=== PATIENT | female | born 1990 | race Hispanic/Latino ===

== ENCOUNTER 2016-06-30 12:06 | Outpatient (CLI) | payer MEDICAID ==
[~2016-06-30] VITALS: Ht 165.1 cm; Wt 125.2 kg
[~2016-06-30 12:06] MED LIST: ACHD5005 PO; CEPH-507 PO; CITA20TA12 PO; DCS100C PO; FERR-74 PO; HYDR-3812 PO; IBP600T1 PO; IBUP-1773 PO; IRON; METFORMIN; MTF500T PO; NAPROSYN; OXYC-12 PO; PREN1TAB39 PO; PREN1TAB71 PO
[2016-06-30 12:27] VITALS: BP 125/68
[2016-06-30 13:03] LABS: BASOPHILS % (AUTO) 0 % (0-10); EOSINOPHILS # (AUTO) 0.3 10^3/uL (0.0-0.3); EOSINOPHILS % (AUTO) 5 % (0-10); LYMPHOCYTES # (AUTO) 1.9 X 10^3 (1.0-4.0); LYMPHOCYTES % (AUTO) 34 % (12-44); MEAN CORPUSCULAR HEMOGLOBIN 25 PG (25-34); MEAN CORPUSCULAR HGB CONC 33 G/DL (32-36); MEAN CORPUSCULAR VOLUME 76 FL (80-99); MEAN PLATELET VOLUME 9.7 FL (7.4-10.4); MONOCYTES # (AUTO) 0.5 X 10^3 (0.0-1.0); MONOCYTES % (AUTO) 8 % (0-12); NEUTROPHILS # (AUTO) 2.9 X 10^3 (1.8-7.8); NEUTROPHILS % (AUTO) 53 % (42-75); PLATELET COUNT 316 10^3/uL (130-400); RED BLOOD COUNT 4.89 10^6/uL (4.35-5.85); RED CELL DISTRIBUTION WIDTH 15.2 % (10.0-14.5); WHITE BLOOD COUNT 5.6 10^3/uL (4.3-11.0)
== END 2016-06-30 13:27 | disposition home or self-care (01) ==
LOC: PREOP 12:06
PROVIDERS: ATTEND Obstetrics & Gynecology
DX: Z01.812 Encounter for preprocedural laboratory examination (principal); Z11.2 Encounter for screening for other bacterial diseases; N80.9 Endometriosis, unspecified
CPT/HCPCS: 36415; 85025; 86850; 86900; 86901; 87081

== ENCOUNTER 2018-11-14 05:33 | Outpatient (CLI) | payer BC, MEDICAID ==
[~2018-11-14] VITALS: Ht 165.1 cm; Wt 145.4 kg
[~2018-11-14 05:33] MED LIST changes: -FERR-74 PO; +FERR325T18 PO; -HYDR-3812 PO
[2018-11-14 12:43] VITALS: BP 119/57
[2018-11-14 13:15] LABS: BASOPHILS % (AUTO) 0 % (0-10); EOSINOPHILS # (AUTO) 0.2 10^3/uL (0.0-0.3); EOSINOPHILS % (AUTO) 4 % (0-10); HEMATOCRIT 35 % (35-52); HEMOGLOBIN 11.5 G/DL (11.5-16.0); LYMPHOCYTES # (AUTO) 2.1 X 10^3 (1.0-4.0); LYMPHOCYTES % (AUTO) 43 % (12-44); MEAN CORPUSCULAR HEMOGLOBIN 25 PG (25-34); MEAN CORPUSCULAR HGB CONC 33 G/DL (32-36); MEAN CORPUSCULAR VOLUME 78 FL (80-99); MEAN PLATELET VOLUME 9.7 FL (7.4-10.4); MONOCYTES # (AUTO) 0.4 X 10^3 (0.0-1.0); MONOCYTES % (AUTO) 8 % (0-12); NEUTROPHILS # (AUTO) 2.1 X 10^3 (1.8-7.8); NEUTROPHILS % (AUTO) 44 % (42-75); PLATELET COUNT 320 10^3/uL (130-400); RED CELL DISTRIBUTION WIDTH 14.9 % (10.0-14.5); WHITE BLOOD COUNT 4.8 10^3/uL (4.3-11.0)
[2018-11-14 13:21] LABS: BILIRUBIN,URINE NEGATIVE (NEGATIVE); CLARITY,URINE CLEAR; COLOR,URINE YELLOW; GLUCOSE, URINE (UA) NEGATIVE (NEGATIVE); KETONES,URINE NEGATIVE (NEGATIVE); LEUKOCYTE ESTERASE ,URINE 2+ (NEGATIVE); NITRITE,URINE NEGATIVE (NEGATIVE); PH,URINE 5 (5-9); PROTEIN,URINE NEGATIVE (NEGATIVE); UROBILINOGEN,URINE NORMAL (NORMAL)
[2018-11-14 13:29] LABS: BACTERIA,URINE FEW /HPF; RBC,URINE RARE /HPF
== END 2018-11-14 15:00 | disposition home or self-care (01) ==
LOC: PREOP 05:33
PROVIDERS: ATTEND Obstetrics & Gynecology
DX: Z01.818 Encounter for other preprocedural examination (principal); N80.9 Endometriosis, unspecified
CPT/HCPCS: 36415; 81000; 85025; 86850; 86900; 86901; 87081; 87088

== ENCOUNTER 2018-11-20 06:19 | Day surgery (SDC) | payer BC, MEDICAID ==
[~2018-11-20] VITALS: Ht 165.1 cm; Wt 141.8 kg
[2018-11-20] VITALS (12 sets, daily range): BP systolic 115–138; BP diastolic 59–95
[2018-11-20] MEDS ORDERED: metroNIDAZOLE 500MG/100ML IVPB 100 ML IV ONE (06:45)
[2018-11-20] MEDS ORDERED: ceFAZolin INJECTION 1,000 MG in WATER (STERILE) FOR INJECTION 10 ML IV ONE (06:45)
[2018-11-20] MEDS ORDERED: ROCURONIUM 10 MG/ML 5 ML SYRINGE IV ONE ×3 (06:56→10:25)
[2018-11-20] MEDS ORDERED: SEVOFLURANE (ULTANE) 15 ML INHAL SOLN ONE ×15 (06:56→11:42)
[2018-11-20] MEDS ORDERED: DEXAMETHASONE 10 MG/ML (DECADRON) 1 ML VIAL ONE (06:56)
[2018-11-20] MEDS ORDERED: GLYCOPYRROLATE 0.2 MG/ML (ROBINUL) 2 ML VIAL ONE (06:56)
[2018-11-20] MEDS ORDERED: ONDANSETRON 4 MG/2 ML (SDV) Z0FRAN ONE (06:56)
[2018-11-20] MEDS ORDERED: fentaNYL INJECTION 100 MCG/2 ML AMP ONE (06:56)
[2018-11-20] MEDS ORDERED: MIDAZOLAM 2 MG/2 ML (VERSED) VIAL ONE (06:56)
[2018-11-20] MEDS ORDERED: NEOSTIGMINE 3 MG/3 ML VIAL ONE (06:56)
[2018-11-20] MEDS: LACTATED RINGERS 1,000 ML IV PRN ×2 (07:05→09:10)
[2018-11-20] MEDS ORDERED: BUP/EPI 0.25% 1:200,000 (MARCAINE) 10 ML VIAL IJ ONE (07:25)
--- NOTE | 2018-11-20 07:41 | Progress Note-Pre Operative ---
Pre-Operative Progress Note H&P Reviewed The H&P was reviewed, patient examined and no changes noted. Date Seen by Provider: Nov 20, 2018 Time Seen by Provider: 07:30 Date H&P Reviewed: Nov 20, 2018 Time H&P Reviewed: 07:00 Pre-Operative Diagnosis: endometriosis, endometrioma JASON KEYS DO Nov 20, 2018 07:41
[2018-11-20] MEDS ORDERED: KETOROLAC 30 MG/ML VIAL IV SCH (08:15)
[2018-11-20] MEDS ORDERED: CHLORASEPTIC LOZENGE MM PRN (08:15)
[2018-11-20] MEDS ORDERED: MILK OF MAGNESIA 400 MG/5 ML 30 ML UDC PO PRN (08:15)
[2018-11-20] MEDS ORDERED: ONDANSETRON 4 MG (ZOFRAN) ORAL DISSOLVE TAB PO PRN (08:15)
[2018-11-20] MEDS ORDERED: INDIGO CARMINE 8 MG/ML 5 ML AMP ONE (10:59)
[2018-11-20] MEDS ORDERED: HYDROmorphone 2 MG/ML VIAL (DILAUDID) ONE (11:01)
[2018-11-20] MEDS ORDERED: FUROSEMIDE 40 MG/4 ML INJ (LASIX) ONE (11:11)
--- NOTE | 2018-11-20 11:57 | Operative Report ---
Operative Report Date of Procedure/Surgery Nov 20, 2018 Surgeon (s) JASON KEYS DO Post-Operative Diagnosis ADENOMYOSIS CHRONIC PAIN ENDOMETRIOSIS TUBOOVARIAN ADHESIONS Procedure Performed rAth, BILATERAL SALPINGECTOMY > 250 GRAMS MORCELLATION (TRIVALVED) TRIGGER POINT INJECTION Description of Procedure Anesthesia Type: General Estimated blood loss (mL): 250 Specimen(s) collected/removed UTERUS, BILATERAL TUBES Findings of the Procedure > 250 GRAMS Allergies and Home Medications Allergies Coded Allergies: No Known Drug Allergies (Unverified , 11/14/18) Home Medications No Active Prescriptions or Reported Meds Patient Home Medication List Home Medication List Reviewed: Yes JASON KEYS DO Nov 20, 2018 11:57
[2018-11-20] MEDS: LACTATED RINGERS 1,000 ML IV SCH ×2 (12:03→16:30)
[2018-11-20] MEDS ORDERED: ONDANSETRON 4 MG/2 ML (SDV) Z0FRAN IVP PRN (12:15)
[2018-11-20] MEDS ORDERED: morphine INJ 10 MG/ML 1ML (SYR OR VIAL) IVP ONE (12:15)
[2018-11-20] MEDS ORDERED: HYDROmorphone 2 MG/ML VIAL (DILAUDID) IV ONE (12:15)
[2018-11-20] MEDS ORDERED: KETOROLAC 30 MG/ML VIAL ONE (12:22)
--- NOTE | 2018-11-20 13:00 | NUR ---
TARIQ KRAFT admitted to room 3306-1, with an admitting diagnosis of postop RAH with Bilateral salpingectomy, on 11-20-18 from OR via cart, accompanied by staff.TARIQ KRAFT introduced to surroundings, call light, bed controls, phone, TV, temperature control, lights, meal times, smoking policy, visitor policy, side rail policy, bathrooms and showers. Patient Rights given to patient in the handbook. TARIQ KRAFT verbalizes understanding that [facility] is not responsible for the loss or damage to any personal effects or valuables that are kept in the patients posession during their hospitalization. The following Patient Care Plans were discussed with the patient: Discharge Planning, pain management, postop care. TARIQ KRAFT verbalizes understanding of Interdisciplinary Patient Education. Patient and/or family were informed about the Rapid Response Team and its purpose.
[2018-11-20] MEDS: morphine INJ 4 MG/ML 1 ML (VIAL/SYRINGE) IVP PRN ×2 (15:15→22:45)
[2018-11-20] MEDS: KETOROLAC 30 MG/ML VIAL IV SCH (19:31)
--- NOTE | 2018-11-20 19:31 | NUR ---
PRN and routine pain medications provided at this time. Family, and spool tender present at bedside. Will return to reevaluate pain and for assessment.
[2018-11-20] MEDS: ACETAMINOPHEN 500 MG TAB (TYLENOL) PO SCH (19:32)
[2018-11-21] MEDS: LACTATED RINGERS 1,000 ML IV SCH (00:35)
[2018-11-21 02:10] VITALS: BP 110/58
[2018-11-21] MEDS: KETOROLAC 30 MG/ML VIAL IV SCH ×2 (02:20→09:14)
[2018-11-21] MEDS: ACETAMINOPHEN 500 MG TAB (TYLENOL) PO SCH ×2 (04:30→13:24)
[2018-11-21 06:40] VITALS: BP 119/58
[2018-11-21] MEDS ORDERED: IBUP-844 PO (08:27)
[2018-11-21] MEDS ORDERED: DOCU-143 PO (08:27)
[2018-11-21] MEDS ORDERED: MAGN400O7 PO (08:27)
[2018-11-21] MEDS ORDERED: ACET-77 PO (08:27)
[2018-11-21] MEDS ORDERED: OXC5T PO (08:27)
--- NOTE | 2018-11-21 08:30 | Discharge Inst-Women's Service ---
Discharge Inst-Women's Serv Depart Medication/Instructions New, Converted or Re-Newed RX: Other (transmmitted and printed) Final Diagnosis endometriosis menorrhagia uterine fibroids adenomyosis Problems Reviewed?: Yes Consults/Follow Up Additional Follow Up: Yes (1 -2 weeks for incision check and 10-12 weeks for pelvic exam.) Activity Activity: Activity as Tolerated Driving Instructions: No Driving for 1 Week NO SMOKING: NO SMOKING Nothing Inside Vagina: No Douching, No [place], No Tampons Other Activity NOTHING IN THE VAGINA UNTIL CLEARED (minimum 10 weeks) Diet Discharge Diet: No Restrictions Symptoms to Report to DrBjorn: Swelling Increased, Bleeding Excessive, Pain Increased, Constipation(Persistant), Fever Over 101 Degrees F, Vaginal Bleeding Increase, Cramps in Feet or Legs, Vaginal Discharge Foul For Any Problems or Questions: Contact Your Physician Skin/Wound Care Infection Signs and Symptoms: Increased Redness, Foul Odor of Wound, Increased Drainage, Skin Itchy or Has a Rash, Increased Swelling, Temperature Above 101 F Operative Area Clean and Dry: Keep Incision Clean/Dry Stitches/Joshua/Dermabond: Dermabond Bathing Instructions: JASON Workman DO Nov 21, 2018 08:30
[2018-11-21] MEDS ORDERED: KETOROLAC 30 MG/ML VIAL ONE (08:31)
--- NOTE | 2018-11-21 08:40 | NUR ---
To room for medications, vs, and assessment. Pt sound asleep. No s/s of distress noted, family member sleeping on couch at bedside. Will not disturb at this time. Will return.
--- NOTE | 2018-11-21 08:56 | NUR ---
DR KEYS CALLED TO UNIT FOR UPDATE. UPDATE GIVEN, NO NEW ORDERS REC'D.
[2018-11-21 09:11] VITALS: BP 109/54
--- NOTE | 2018-11-21 10:07 | NUR ---
FOLLOW UP APPTS MADE FOR PT.
--- NOTE | 2018-11-21 11:30 | NUR ---
PT ASSISTED TO BATHROOM VIA AMBULATION ACCOMPANIED BY OB STAFF WITHOUT INCIDENT. PT VOIDS 200ML CLEAR, YELLOW URINE NOTED. PT ASSISTED BACK TO BED. IV TO SALINE LOCK.
--- NOTE | 2018-11-21 11:40 | NUR ---
DR KEYS NOTIFIED PT VOIDED AND IS READY FOR DISMISSAL BUT HAS QUESTIONS REGARDING PROCEDURE. WILL COME TO ANSWER QUESTIONS AFTER MORNING CLINIC IS FINISHED.
[2018-11-21] MEDS ORDERED: IBUPROFEN 600 MG (MOTRIN) TAB PO SCH (12:00)
--- NOTE | 2018-11-21 12:45 | NUR ---
DR KEYS HERE, QUESTIONS ANSWERED TO PT SATISFACTION. PT READY FOR DISMISSAL.
--- NOTE | 2018-11-21 13:30 | NUR ---
DISCHARGE INSTRUCTIONS EXPLAINED TO PT WITH COPY PROVIDED TO PT ALONG WITH NARCOTIC SCRIPTS, PT NOTIFIED OF OTHER PRESCRIPTIONS ELECTRONICALLY SENT TO PHARMACY. PT VERBALIZES UNDERSTANDING OF INSTRUCTIONS, DENIES QUESTIONS OR CONCERNS AT THIS TIME, AND SIGNS TO VERIFY. IV REMOVED, TIP INTACT. PT AMBULATES OFF UNIT WITH ALL PERSONAL BELONGINGS, ACCOMPANIED BY S.O. AND STAFF MEMBER TO PRIVATE VEHICLE. NO S/S OF DISTRESS NOTED.
--- NOTE | 2018-11-21 14:29 | Anesthesia-General Post-Op ---
General Patient Condition Mental Status/LOC: Same as Preop Cardiovascular: Satisfactory Nausea/Vomiting: Absent Respiratory: Satisfactory Pain: Controlled Complications: Absent Post Op Complications Complications None Follow Up Care/Instructions Patient Instructions None needed. Anesthesia/Patient Condition Patient Condition Patient is doing well, no complaints, stable vital signs, no apparent adverse anesthesia problems. No complications reported per nursing. ACOSTA HENSON CRNA Nov 21, 2018 14:29
== END 2018-11-21 13:35 | disposition home or self-care (01) ==
LOC: SDC 06:19 → WS 13:00 → SDC 11-21 13:35
PROVIDERS: ATTEND Obstetrics & Gynecology
DX: N80.0 Endometriosis of uterus (principal); D25.1 Intramural leiomyoma of uterus; N83.8 Other noninflammatory disorders of ovary, fallopian tube and broad ligament; G89.29 Other chronic pain; R10.2 Pelvic and perineal pain; N73.6 Female pelvic peritoneal adhesions (postinfective); E66.9 Obesity, unspecified; Z68.43 Body mass index [BMI] 50.0-59.9, adult; F32.9 Major depressive disorder, single episode, unspecified; Z82.49 Family history of ischemic heart disease and other diseases of the circulatory system; Z83.3 Family history of diabetes mellitus
CPT/HCPCS: 84703; 86850; 86900; 86901; 88307; 94664

== ENCOUNTER 2018-12-20 21:04 | Emergency (ER) | payer BC ==
[~2018-12-20] VITALS: Ht 167.7 cm; Wt 143.8 kg
[~2018-12-20 21:04] MED LIST changes: +ACET-77 PO; +DOCU-143 PO; +IBUP-844 PO; +MAGN400O7 PO; +OXC5T PO
[2018-12-20] MEDS ORDERED: NS IV 1000 ML 1,000 ML ONE (21:30)
[2018-12-20] MEDS ORDERED: NS IV 1000 ML 1,000 ML IV SCH (21:36)
[2018-12-20 21:43] LABS: BASOPHILS % (AUTO) 0 % (0-10); EOSINOPHILS # (AUTO) 0.5 10^3/uL (0.0-0.3); EOSINOPHILS % (AUTO) 7 % (0-10); HEMATOCRIT 34 % (35-52); HEMOGLOBIN 10.8 G/DL (11.5-16.0); LYMPHOCYTES # (AUTO) 2.9 X 10^3 (1.0-4.0); LYMPHOCYTES % (AUTO) 41 % (12-44); MEAN CORPUSCULAR HEMOGLOBIN 25 PG (25-34); MEAN CORPUSCULAR HGB CONC 32 G/DL (32-36); MEAN CORPUSCULAR VOLUME 77 FL (80-99); MEAN PLATELET VOLUME 9.6 FL (7.4-10.4); MONOCYTES # (AUTO) 0.7 X 10^3 (0.0-1.0); MONOCYTES % (AUTO) 10 % (0-12); NEUTROPHILS % (AUTO) 43 % (42-75); PLATELET COUNT 320 10^3/uL (130-400); RED CELL DISTRIBUTION WIDTH 14.6 % (10.0-14.5)
[2018-12-20 21:50] LABS: INR 1.1 (0.8-1.4); PROTHROMBIN TIME PATIENT 14.2 SEC (12.2-14.7)
[2018-12-20 21:58] LABS: ALANINE AMINOTRANSFERASE 42 U/L (0-55); ALBUMIN 3.9 GM/DL (3.2-4.5); ALKALINE PHOSPHATASE 81 U/L (40-136); BILIRUBIN,TOTAL 0.3 MG/DL (0.1-1.0); BUN/CREATININE RATIO 14; CALCIUM 8.9 MG/DL (8.5-10.1); CARBON DIOXIDE 24 MMOL/L (21-32); CHLORIDE 109 MMOL/L (98-107); CREATININE SERUM 0.69 MG/DL (0.60-1.30); GFR ESTIMATED > 60; GLUCOSE 117 MG/DL (70-105); POTASSIUM 4.1 MMOL/L (3.6-5.0); SODIUM 141 MMOL/L (135-145); TOTAL PROTEIN 6.9 GM/DL (6.4-8.2)
[2018-12-20 22:04] LABS: BILIRUBIN,URINE NEGATIVE (NEGATIVE); CLARITY,URINE CLEAR; COLOR,URINE YELLOW; GLUCOSE, URINE (UA) NEGATIVE (NEGATIVE); KETONES,URINE NEGATIVE (NEGATIVE); LEUKOCYTE ESTERASE ,URINE NEGATIVE (NEGATIVE); NITRITE,URINE NEGATIVE (NEGATIVE); PH,URINE 7 (5-9); PROTEIN,URINE NEGATIVE (NEGATIVE); UROBILINOGEN,URINE NORMAL (NORMAL)
[2018-12-20 22:18] LABS: BACTERIA,URINE FEW /HPF; WBC,URINE RARE /HPF
--- NOTE | 2018-12-20 22:32 | ED GU-Female ---
General Chief Complaint: Abdominal/GI Problems Stated Complaint: POST HYSTERECTOMY/PRESSURE/VAG BLEEDING Source: patient History of Present Illness Date Seen by Provider: Dec 20, 2018 Time Seen by Provider: 21:30 Initial Comments PT ARRIVES VIA POV C/O LOW ABDOMINAL PRESSURE OFF AND ON SINCE SURGERY--HAD HYSTERECTOMY ( OVARIES INTACT ) ON 11/20/[address] KEYS, FOR DUB/DYSMENORRHEA/ENDOMETRIOSIS/CHRONIC PELVIC PAIN STATES SINCE 1300 TODAY THE PAIN HAS BEEN STRONGER, BUT STILL COMES AND GOES AND IS NOT PRESENT RIGHT NOW STATES JUST PRIOR TO ARRIVAL, SHE HAD BLOOD ON TISSUE WITH WIPING, SO CAME STRAIGHT HERE NO PROBLEMS URINATING NO FEVER NO NAUSEA/VOMITING HAD NORMAL BM TODAY HAS NOT TAKEN ANYTHING FOR PAIN PT STATES SHE HAS BEEN SEXUALLY ACTIVE SINCE APPROXIMATELY 3 WEEKS AFTER SURGERY--ADMITS THAT SHE WAS NOT CLEARED TO RETURN TO NORMAL SEXUAL ACTIVITY. STATES LAST INTERCOURSE WAS A FEW DAYS AGO. SAW [employer] 2 WEEKS AFTER SURGERY, AND DOES NOT HAVE ANOTHER APPOINTMENT UNTIL FEBRUARY. 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 KEYS Allergies and Home Medications Allergies Coded Allergies: No Known Drug Allergies (Unverified , 11/14/18) Home Medications Acetaminophen 500 Mg Tablet, 1,000 MG PO Q8HR Prescribed by: JASON KEYS on 11/21/18826 Docusate Sodium 100 Mg Capsule, 100 MG PO DAILY Prescribed by: JASON KEYS on 11/21/18826 Ibuprofen 600 Mg Tablet, 600 MG PO Q6HR Prescribed by: JASON KEYS on 11/21/18826 Magnesium Hydroxide 400 Mg/5 Ml Oral.susp, 30 ML PO BID PRN for constipation Prescribed by: JASON KEYS on 11/21/18826 Oxycodone Hcl 5 Mg Tab, 5 MG PO Q6H PRN for pain Prescribed by: JASON KEYS on 11/21/18826 Patient Home Medication List Home Medication List Reviewed: Yes Review of Systems Review of Systems Constitutional: no symptoms reported; No chills, No diaphoresis, No fever EENTM: no symptoms reported Respiratory: no symptoms reported Cardiovascular: no symptoms reported Gastrointestinal: see HPI, abdominal pain; No constipation, No diarrhea, No loss of appetite, No nausea, No vomiting Genitourinary: see HPI; denies flank pain : No Musculoskeletal: no symptoms reported; No back pain Skin: no symptoms reported Psychiatric/Neurological: No Symptoms Reported Endocrine: No Symptoms Reported Hematologic/Lymphatic: No Symptoms Reported Past Jfrqhjj-Npwtre-Qxvptv Hx Past Med/Social Hx: Reviewed and Corrections made Patient Social History Alcohol Use: Denies Use Recreational Drug Use: No Smoking Status: Never a Smoker 2nd Hand Smoke Exposure: No Recent Foreign Travel: No Contact w/Someone Who Travel: No Recent Hopitalizations: No Immunizations Up To Date Tetanus Booster (TDap): Unknown PED Vaccines UTD: No Date of Influenza Vaccine: Jan 08, 2018 Seasonal Allergies Seasonal Allergies: No Past Medical History Surgeries: Yes ( X4; PILONIDAL CYST EXCISION; ENDOMETRIOMA REMOVED FROM SCAR; ROBOTIC ASSISTED HYST/OVARIES INTACT 11/20/18) Section, Hysterectomy Respiratory: No Cardiac: No 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) Reproductive Disorders: Yes (HX CYST-REMOVED DURING ) Female Reproductive Disorders: Menstrual Problems, Endometriosis Sexually Transmitted Disease: No HIV/AIDS: No Genitourinary: Yes Kidney Stones Gastrointestinal: Yes Gastroesophageal Reflux Musculoskeletal: No Endocrine: Yes (MORBIDLY OBESE) HEENT: Yes (GLASSES) Loss of Vision: Denies Hearing Impairment: Denies Cancer: No Psychosocial: Yes Depression Integumentary: Yes (PILONIDAL CYST REMOVED) Blood Disorders: No Adverse Reaction/Blood Tranf: No (N/A) Family Medical History Alcoholism 19 FATHER G8 BROTHER Cardiovascular disease 19 FATHER 19 MOTHER Cataracts 19 FATHER Diabetes mellitus 19 FATHER G8 BROTHER G8 SISTER Hypertension 19 FATHER 19 MOTHER Kidney disease 19 FATHER No Family History of: AIDS Abdominal aortic aneurysm Alzheimer's disease Arthritis Asthma Cancer of mouth Colon cancer Completed stroke Dementia Glaucoma Myocardial infarction Parkinson's disease Prostate cancer Psychosocial problem Respiratory disorder Seizure disorder Severe allergy Thyroid disease Tuberculosis Visual disorder Physical Exam Vital Signs Vital Signs - First Documented 12/20/18 21:15 Temp 37.9 Pulse 93 Resp 18 B/P (MAP) 93/42 (59) Pulse Ox 96 Capillary Refill : Height, Weight, BMI Height: 5'5.00" Weight: 312lbs. 9.0oz. 141.610865bc; 52.0 BMI Method:Stated General Appearance: no apparent distress, obese (MORBIDLY ) Cardiovascular: regular rate, rhythm, no edema, no JVD, no murmur Respiratory: normal breath sounds, no respiratory distress, no accessory muscle use Gastrointestinal: normal bowel sounds, soft, no organomegaly, no pulsatile mass, tenderness (MILD SUPRAPUBIC TENDERNESS) Pelvic: other (VERY DIFFICULT EXAM DUE TO BODY HABITUS, WITH LIMITED V ISIBILITY. LEFT LABIA MAJORAL AND MINORA MUCH LARGER/EDEMATOUS THAN RIGHT. NON- TENDER. SCANT AMOUNT OF OLD BLOOD IN VAGINA, BUT UNABLE TO VISUALIZE VAGINAL CUFF DUE TO BODY HABITUS. 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 nml as tested, no motor/sensory deficits, alert, normal mood/affect, oriented x 3 Skin: normal color, warm/dry Progress/Results/Core Measures Suspected Sepsis SIRS Temperature: Pulse: Respiratory Rate: Laboratory Tests 12/20/18 21:28: White Blood Count 7.0 Blood Pressure / Mean: Laboratory Tests 12/20/18 21:28: Creatinine 0.69, INR Comment 1.1, Platelet Count 320, Total Bilirubin 0.3 Results/Orders Lab Results Laboratory Tests Test 12/20/18 21:28 12/20/18 21:56 Range/Units White Blood Count 7.0 4.3-11.0 10^3/uL Red Blood Count 4.40 4.35-5.85 10^6/uL Hemoglobin 10.8 L 11.5-16.0 G/DL Hematocrit 34 L 35-52 % Mean Corpuscular Volume 77 L 80-99 FL Mean Corpuscular Hemoglobin 25 25-34 PG Mean Corpuscular Hemoglobin Concent 32 32-36 G/DL Red Cell Distribution Width 14.6 H 10.0-14.5 % Platelet Count 320 130-400 10^3/uL Mean Platelet Volume 9.6 7.4-10.4 FL Neutrophils (%) (Auto) 43 42-75 % Lymphocytes (%) (Auto) 41 12-44 % Monocytes (%) (Auto) 10 0-12 % Eosinophils (%) (Auto) 7 0-10 % Basophils (%) (Auto) 0 0-10 % Neutrophils # (Auto) 3.0 1.8-7.8 X 10^3 Lymphocytes # (Auto) 2.9 1.0-4.0 X 10^3 Monocytes # (Auto) 0.7 0.0-1.0 X 10^3 Eosinophils # (Auto) 0.5 H 0.0-0.3 10^3/uL Basophils # (Auto) 0.0 0.0-0.1 10^3/uL Prothrombin Time 14.2 12.2-14.7 SEC INR Comment 1.1 0.8-1.4 Activated Partial Thromboplast Time 27 24-35 SEC Sodium Level 141 135-145 MMOL/L Potassium Level 4.1 3.6-5.0 MMOL/L Chloride Level 109 H 98-107 MMOL/L Carbon Dioxide Level 24 21-32 MMOL/L Anion Gap 8 5-14 MMOL/L Blood Urea Nitrogen 10 7-18 MG/DL Creatinine 0.69 0.60-1.30 MG/DL Estimat Glomerular Filtration Rate > 60 BUN/Creatinine Ratio 14 Glucose Level 117 H 70-105 MG/DL Calcium Level 8.9 8.5-10.1 MG/DL Corrected Calcium 9.0 8.5-10.1 MG/DL Total Bilirubin 0.3 0.1-1.0 MG/DL Aspartate Amino Transf (AST/SGOT) 23 5-34 U/L Alanine Aminotransferase (ALT/SGPT) 42 0-55 U/L Alkaline Phosphatase 81 40-136 U/L Total Protein 6.9 6.4-8.2 GM/DL Albumin 3.9 3.2-4.5 GM/DL Urine Color YELLOW Urine Clarity CLEAR Urine pH 7 5-9 Urine Specific [place] 1.015 L 1.016-1.022 Urine Protein NEGATIVE NEGATIVE Urine Glucose (UA) NEGATIVE NEGATIVE Urine Ketones NEGATIVE NEGATIVE Urine Nitrite NEGATIVE NEGATIVE Urine Bilirubin NEGATIVE NEGATIVE Urine Urobilinogen NORMAL NORMAL MG/DL Urine Leukocyte Esterase NEGATIVE NEGATIVE Urine RBC (Auto) NEGATIVE NEGATIVE Urine RBC NONE /HPF Urine WBC RARE /HPF Urine Squamous Epithelial Cells 5-10 /HPF Urine Crystals NONE /LPF Urine Bacteria FEW H /HPF Urine Casts NONE /LPF Urine Mucus NEGATIVE /LPF Urine Culture Indicated NO My Orders Orders - JEANNINE REYNOSO DO Ed Iv/Invasive Line Start (12/20/18 21:36) Monitor-Rhythm Ecg Trace Only (12/20/18 21:36) Straight Cath For Spec.-Adult (12/20/18 21:36) Cbc With Automated Diff (12/20/18 21:36) Comprehensive Metabolic Panel (12/20/18 21:36) Protime With Inr (12/20/18 21:36) Partial Thromboplastin Time (12/20/18 21:36) Ua Culture If Indicated (12/20/18 21:36) Ed Iv/Invasive Line Start (12/20/18 21:36) Ns Iv 1000 Ml (Sodium Chloride 0.9%) (12/20/18 21:36) Ns Iv 1000 Ml (Sodium Chloride 0.9%) (12/20/18 21:30) Vital Signs/I&O 12/20/18 12/20/18 21:15 22:35 Temp 37.9 Pulse 93 89 Resp 18 18 B/P (MAP) 93/42 (59) 134/74 (59) Pulse Ox 96 97 12/21/18 00:00 Intake Total 1000 ml Balance 1000 ml Capillary Refill : Departure Impression Primary Impression: Post-op bleeding Additional Impression: S/P HYST WITH VAGINAL BLEEDING Disposition: 01 HOME, SELF-CARE Condition: Stable Departure-Patient Inst. Referrals: NO,LOCAL PHYSICIAN (PCP) Primary Care Physician JASON KEYS DO Patient Instructions: Bleeding After Surgery Add. Discharge Instructions: NOTHING IN VAGINA--NO TAMPONS, DOUCHING OR INTERCOURSE CONTINUE ALL POST OP INSTRUCTIONS FOLLOW UP WITH DR. KEYS TOMORROW OR MONDAY RETURN TO ER IF WORSE All discharge instructions reviewed with patient and/or family. Voiced understanding. JEANNINE REYNOSO DO Dec 20, 2018 22:32
[2018-12-20 22:35] VITALS: BP 134/74
== END 2018-12-20 22:39 | disposition home or self-care (01) ==
LOC: EDUNIT# 21:04 → ER 21:05
DX: N99.820 Postprocedural hemorrhage of a genitourinary system organ or structure following a genitourinary system procedure (principal); F32.9 Major depressive disorder, single episode, unspecified; K21.9 Gastro-esophageal reflux disease without esophagitis; E66.01 Morbid (severe) obesity due to excess calories; Z87.442 Personal history of urinary calculi; Z87.42 Personal history of other diseases of the female genital tract; Z90.710 Acquired absence of both cervix and uterus; Z82.49 Family history of ischemic heart disease and other diseases of the circulatory system
CPT/HCPCS: 36415; 51701; 80053; 81000; 85025; 85610; 85730; 93041

== ENCOUNTER 2019-03-19 14:16 | Outpatient (RCR) | payer BC | END 2019-04-04 15:08 | disposition home or self-care (01) | PROVIDERS: ATTEND Obstetrics & Gynecology | DX: G89.28 Other chronic postprocedural pain (principal); M25.551 Pain in right hip; M54.5 Low back pain ==

== ENCOUNTER 2019-11-01 08:41 | Emergency (ER) | payer SELFPAY ==
[~2019-11-01] VITALS: Ht 170 cm; Wt 145.0 kg
[~2019-11-01 08:41] MED LIST changes: -ACET-77 PO; +ACET-78 PO
[2019-11-01] MEDS ORDERED: diphenhydrAMINE 50 MG/ML INJ (BENADRYL) IV STA (10:27)
[2019-11-01] MEDS ORDERED: PROMETHAZINE INJ 25 MG/ML (PHENERGAN) AMP IVP STA (10:27)
[2019-11-01] MEDS ORDERED: KETOROLAC 30 MG/ML VIAL IVP STA (10:27)
[2019-11-01] MEDS ORDERED: NS IV 1000 ML 1,000 ML IV ONE (10:27)
--- NOTE | 2019-11-01 10:33 | ED Head Injury ---
General Chief Complaint: Head/Cervical Problems Stated Complaint: HEADACHE Nursing Triage Note: Pt c/o headache since falling and hitting head on Monday. Pt denies LOC. Pt reports hitting head on wall and then on hardwood floor. Pt reports pain has worsened today. Pt reports feeling lethargic. Source: patient Exam Limitations: no limitations History of Present Illness Date Seen by Provider: Nov 01, 2019 Time Seen by Provider: 10:18 Initial Comments Here with report of significant headache and right-sided neck pain. States she fell 2 days ago and hit her head on the wall and then on a hardwood floor on the top right side. Has right-sided neck pain as well. Denies loss of consciousness. Overnight started feeling worse with headache at the top of her head that was fairly significant. Denies upper respiratory symptoms or contact with COVID-19. Denies nausea and vomiting. Does have some history of headaches but usually they're frontal and not like this. Occurred: yesterday Severity: moderate Location: occipital Method of Injury: direct blow Loss of Consciousness: no loss of consciousness Associated Systoms: No Chest Pain, No Cough, No Fever/Chills; Headaches; No Nausea/Vomiting, No Seizure, No Shortness of Air, No Syncope, No Weakness Allergies and Home Medications Allergies Coded Allergies: No Known Drug Allergies (Unverified , 11/14/18) Home Medications Acetaminophen 500 Mg Tablet, 1,000 MG PO Q8HR Prescribed by: JASON KEYS on 11/21/18826 Docusate Sodium 100 Mg Capsule, 100 MG PO DAILY Prescribed by: JASON KEYS on 11/21/18826 Ibuprofen 600 Mg Tablet, 600 MG PO Q6HR Prescribed by: JASON KEYS on 11/21/18826 Magnesium Hydroxide 400 Mg/5 Ml Oral.susp, 30 ML PO BID PRN for constipation Prescribed by: JASON KEYS on 11/21/18826 Oxycodone Hcl 5 Mg Tab, 5 MG PO Q6H PRN for pain Prescribed by: JASON KEYS on 11/21/18826 Patient Home Medication List Home Medication List Reviewed: Yes Review of Systems Review of Systems Constitutional: see HPI; No chills, No fever Eyes: No Symptoms Reported Ears, Nose, Mouth, Throat: no symptoms reported Respiratory: No cough, No short of breath Cardiovascular: no symptoms reported Gastrointestinal: No nausea, No vomiting Genitourinary: No dysuria, No pain Musculoskeletal: muscle pain, neck pain Skin: no symptoms reported Psychiatric/Neurological: Headache; Denies Numbness Past Mrrjcsw-Zvxwsz-Pfcrxc Hx Past Med/Social Hx: Reviewed Nursing Past Med/Soc Hx Patient Social History Alcohol Use: Occasionally Uses Recreational Drug Use: No 2nd Hand Smoke Exposure: No Recent Foreign Travel: No Contact w/Someone Who Travel: No Recent Infectious Disease Expo: No Recent Hopitalizations: No Immunizations Up To Date Tetanus Booster (TDap): Unknown PED Vaccines UTD: No Date of Influenza Vaccine: Jan 08, 2018 Seasonal Allergies Seasonal Allergies: No Past Medical History Surgeries: Yes Section, Hysterectomy Respiratory: No Cardiac: No 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) Reproductive Disorders: Yes (HX CYST-REMOVED DURING ) Female Reproductive Disorders: Menstrual Problems, 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 Sexually Transmitted Disease: No HIV/AIDS: No Genitourinary: Yes Kidney Stones Gastrointestinal: Yes Gastroesophageal Reflux Musculoskeletal: No Endocrine: Yes (MORBIDLY OBESE) HEENT: Yes (GLASSES) Loss of Vision: Denies Hearing Impairment: Denies Cancer: No Psychosocial: Yes Depression Integumentary: Yes (PILONIDAL CYST REMOVED) Blood Disorders: No Adverse Reaction/Blood Tranf: No (N/A) Family Medical History Reviewed Nursing Family Hx Alcoholism 19 FATHER G8 BROTHER Cardiovascular disease 19 FATHER 19 MOTHER Cataracts 19 FATHER Diabetes mellitus 19 FATHER G8 BROTHER G8 SISTER Hypertension 19 FATHER 19 MOTHER Kidney disease 19 FATHER Physical Exam Vital Signs Vital Signs - First Documented 11/01/19 09:05 Temp 36.7 Pulse 72 Resp 18 B/P (MAP) 122/66 (84) Pulse Ox 98 O2 Delivery Room Air Capillary Refill : Less Than 3 Seconds Height, Weight, BMI Height: 5'5.00" Weight: 312lbs. 9.0oz. 141.991484px; 50.00 BMI Method:Stated General Appearance: WD/WN, mild distress HEENT: PERRL/EOMI, TMs normal Neck: full range of motion, supple Cardiovascular: regular rate, rhythm, no murmur Respiratory: lungs clear, normal breath sounds Gastrointestinal: non tender, soft Back: normal inspection, no CVA tenderness, no vertebral tenderness Extremities: non-tender, normal inspection Psychiatric: alert, oriented x 3 Crainal Nerves: normal hearing, normal speech, PERRL Coordination/Gait: normal gait Motor/Sensory: no motor deficit, no sensory deficit Skin: normal color, warm/dry Radha Coma Score Best Eye Response: (4) Open Spontaneously Best Verbal Response: (5) Oriented Best Motor Response: (6) Obeys Commands Progress/Results/Core Measures Results/Orders My Orders Orders - EMY AARON MD Ed Iv/Invasive Line Start (11/01/19 10:27) Ns Iv 1000 Ml (Sodium Chloride 0.9%) (11/01/19 10:27) Ketorolac Injection (Toradol Injection) (11/01/19 10:27) Promethazine Injection (Phenergan Injec (11/01/19 10:27) Diphenhydramine Injection (Benadryl Inje (11/01/19 10:27) Ct Head/Cervical Spine Wo (11/01/19 10:27) Medications Given in ED Current Medications Medications Dose Ordered Sig/Stephane Route Start Time Stop Time Status Last Admin Dose Admin Sodium Chloride 1,000 ml @ 0 mls/hr Q0M ONCE IV 11/01/19 10:27 11/01/19 10:29 DC 11/01/19 10:51 1,000 MLS/HR Vital Signs/I&O 11/01/19 09:05 Temp 36.7 Pulse 72 Resp 18 B/P (MAP) 122/66 (84) Pulse Ox 98 O2 Delivery Room Air 2 Blood Pressure Mean: 84 Progress Progress Note : Progress Note Seen and evaluated. IV, normal saline 1 L bolus, Phenergan 25 mg IV, Toradol 30 mg IV and Benadryl [address] head and neck ordered due to fall history and new onset different headache. Monitor patient. 1239: Overall doing better. Discussed concussion concerns. Discharged home with return precautions. Patient verbalize understanding instructions and agreement with plan. Diagnostic Imaging Diagonstic Imaging: CT Plain Films/CT/US/NM/MRI: c-spine, head Comments [facility]. [place], [place] NAME: TARIQ KRAFT MED REC#: [id number] PT STATUS: REG ER : 1990 PHYSICIAN: EMY AARON MD ADMIT DATE: 11/01/19/ER Draft Date of Exam:11/01/19 CT HEAD/CERVICAL SPINE WO PROCEDURE: CT head and CT cervical spine without contrast. TECHNIQUE: Multiple contiguous axial images were obtained through the brain and cervical spine without the use of intravenous contrast. Sagittal and coronal reformations through the cervical spine were then performed. Auto Exposure Controls were utilized during the CT exam to meet ALARA standards for radiation dose reduction. INDICATION: Fall. Head injury. Headache. COMPARISON: None. FINDINGS: CT HEAD: No intracranial hemorrhage, mass effect, hydrocephalus or extra-axial fluid collections. No CT evidence of territorial infarction. Osseous structures are intact. The visualized paranasal sinuses and mastoids are clear. CT CERVICAL SPINE: Reversal of the normal cervical lordosis is likely positional or due to muscle spasm. Vertebral body heights preserved. No fractures. No substantial spondylotic change or evidence of neural impingement on soft tissue windows. The visualized paravertebral soft tissues are unremarkable. IMPRESSION: 1. No acute intracranial CT findings. 2. Reversal of normal cervical lordosis is likely positional, possibly due to muscle spasm. Cervical spine CT is otherwise negative. Dictated on workstation # [id number] Dict: 11/01/19 1229 Trans: 11/01/19 1239 CV [id number] Interpreted by: ZITA VILLAR MD Electronically signed by: Reviewed: Reviewed by Me Departure Impression Primary Impression: Concussion without loss of consciousness Qualified Codes: S06.0X0A - Concussion without loss of consciousness, initial encounter Additional Impression: Headache Qualified Codes: R51 - Headache Disposition: 01 HOME, SELF-CARE Condition: Stable Departure-Patient Inst. Decision time for Depature: 12:40 Referrals: JASON KEYS DO (PCP) Primary Care Physician Patient Instructions: Concussion, Adult (DC), Headache, Adult (DC), Cervical Muscle Strain (DC) Add. Discharge Instructions: All discharge instructions reviewed with patient and/or family. Voiced understanding. You may take ibuprofen 600 mg every 8 hours as needed for pain. You may also take Tylenol/acetaminophen 1000 mg every 8 hours as needed for pain. Drink plenty of fluids and get plenty of rest. Due to concerns of concussion and you should rest for the next 2-3 days to decrease the length of time for concussion. Do not perform activities that increase your risk for head injury at least for the next 7 days or 7 days after symptoms clear such as sports activities. Follow-up with your Dr. in a few days for recheck. Return for worse pain, fever, vomiting, weakness, breathing problems or other concerns as needed. EMY AARON MD Nov 01, 2019 10:33
--- NOTE | 2019-11-01 11:52 | NUR ---
Pt reports pain is now 4/10 after meds. Pt does report feeling as if meds caused anxiety. Pt reports feeling anxious and tense. Pt declined any further medication.
--- NOTE | 2019-11-01 12:39 | Diagnostic Imaging Report ---
PROCEDURE: CT head and CT cervical spine without contrast. TECHNIQUE: Multiple contiguous axial images were obtained through the brain and cervical spine without the use of intravenous contrast. Sagittal and coronal reformations through the cervical spine were then performed. Auto Exposure Controls were utilized during the CT exam to meet ALARA standards for radiation dose reduction. INDICATION: Fall. Head injury. Headache. COMPARISON: None. FINDINGS: CT HEAD: No intracranial hemorrhage, mass effect, hydrocephalus or extra-axial fluid collections. No CT evidence of territorial infarction. Osseous structures are intact. The visualized paranasal sinuses and mastoids are clear. CT CERVICAL SPINE: Reversal of the normal cervical lordosis is likely positional or due to muscle spasm. Vertebral body heights preserved. No fractures. No substantial spondylotic change or evidence of neural impingement on soft tissue windows. The visualized paravertebral soft tissues are unremarkable. IMPRESSION: 1. No acute intracranial CT findings. 2. Reversal of normal cervical lordosis is likely positional, possibly due to muscle spasm. Cervical spine CT is otherwise negative. Dictated by: Dictated on workstation # [id number]
[2019-11-01 12:52] VITALS: BP 128/70
== END 2019-11-01 12:53 | disposition home or self-care (01) ==
LOC: EDUNIT# 08:41 → ER 08:43
DX: S06.0X0A Concussion without loss of consciousness, initial encounter (principal); R40.2360 Coma scale, best motor response, obeys commands, unspecified time; R40.2250 Coma scale, best verbal response, oriented, unspecified time; R40.2140 Coma scale, eyes open, spontaneous, unspecified time; Z82.49 Family history of ischemic heart disease and other diseases of the circulatory system; W22.8XXA Striking against or struck by other objects, initial encounter
CPT/HCPCS: 70450; 72125

== ENCOUNTER 2020-06-03 09:32 | Emergency (ER) | payer SELFPAY ==
[~2020-06-03] VITALS: Ht 167 cm; Wt 136.0 kg
[2020-06-03 10:15] LABS: BASOPHILS % (AUTO) 0 % (0-10); EOSINOPHILS # (AUTO) 0.1 10^3/uL (0.0-0.3); EOSINOPHILS % (AUTO) 2 % (0-10); HEMATOCRIT 38 % (35-52); HEMOGLOBIN 12.5 g/dL (11.5-16.0); LYMPHOCYTES # (AUTO) 1.7 10^3/uL (1.0-4.0); LYMPHOCYTES % (AUTO) 38 % (12-44); MEAN CORPUSCULAR HEMOGLOBIN 27 pg (25-34); MEAN CORPUSCULAR HGB CONC 33 g/dL (32-36); MEAN CORPUSCULAR VOLUME 82 fL (80-99); MEAN PLATELET VOLUME 9.9 fL (9.0-12.2); MONOCYTES # (AUTO) 0.4 10^3/uL (0.0-1.0); MONOCYTES % (AUTO) 10 % (0-12); NEUTROPHILS # (AUTO) 2.3 10^3/uL (1.8-7.8); NEUTROPHILS % (AUTO) 50 % (42-75); PLATELET COUNT 293 10^3/uL (130-400); WHITE BLOOD COUNT 4.5 10^3/uL (4.3-11.0)
[2020-06-03 10:16] LABS: BILIRUBIN,URINE NEGATIVE (NEGATIVE); CLARITY,URINE CLEAR; COLOR,URINE YELLOW; GLUCOSE, URINE (UA) NEGATIVE (NEGATIVE); KETONES,URINE NEGATIVE (NEGATIVE); LEUKOCYTE ESTERASE ,URINE 1+ (NEGATIVE); NITRITE,URINE NEGATIVE (NEGATIVE); PROTEIN,URINE NEGATIVE (NEGATIVE)
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
[2020-06-03 10:23] LABS: CHLORIDE 110 MMOL/L (98-107); SODIUM 141 MMOL/L (135-145)
[2020-06-03 10:24] LABS: CALCIUM 8.5 MG/DL (8.5-10.1)
[2020-06-03 10:25] LABS: GLUCOSE 116 MG/DL (70-105); TOTAL PROTEIN 7.4 GM/DL (6.4-8.2)
[2020-06-03 10:26] LABS: CARBON DIOXIDE 20 MMOL/L (21-32)
[2020-06-03 10:27] LABS: BILIRUBIN,TOTAL 0.3 MG/DL (0.1-1.0)
[2020-06-03 10:29] LABS: ALKALINE PHOSPHATASE 62 U/L (40-136); CREATININE SERUM 0.73 MG/DL (0.60-1.30); GFR ESTIMATED > 60
[2020-06-03] MEDS ORDERED: FAMOTIDINE 20MG/2ML IV (PEPCID) IVP ONE (10:30)
[2020-06-03] MEDS ORDERED: ONDANSETRON 4 MG/2 ML (SDV) Z0FRAN IVP ONE (10:30)
[2020-06-03 10:31] LABS: BUN/CREATININE RATIO 14
[2020-06-03 10:32] LABS: ALANINE AMINOTRANSFERASE 29 U/L (0-55); SALICYLATE < 5.0 MG/DL (5.0-20.0)
[2020-06-03 10:32] LABS: AMPHETAMINE SCREEN, URINE NEGATIVE (NEGATIVE); BARBITURATE SCREEN URINE NEGATIVE (NEGATIVE); BENZODIAZEPINES SCREEN URINE NEGATIVE (NEGATIVE); CANNABINOID SCREEN, URINE NEGATIVE (NEGATIVE); COCAINE SCREEN URINE NEGATIVE (NEGATIVE); METHADONE STAT NEGATIVE (NEGATIVE); METHAMPHETAMINE SCREEN URINE S NEGATIVE (NEGATIVE); OPIATE SCREEN URINE NEGATIVE (NEGATIVE); OXYCODONE STAT NEGATIVE (NEGATIVE); PROPOXYPHENE STAT NEGATIVE (NEGATIVE); RBC,URINE RARE /HPF; TRICYCLIC ANTIDEPRESSANTS SCRE NEGATIVE (NEGATIVE)
[2020-06-03 10:33] LABS: BACTERIA,URINE FEW /HPF
[2020-06-03 10:34] LABS: HYALINE CASTS, URINE RARE /LPF
[2020-06-03 10:35] LABS: ACETAMINOPHEN < 10 UG/ML (10-30)
[2020-06-03 10:52] LABS: TSH (THYROID ANALYZER) 0.83 UIU/ML (0.35-4.94)
[2020-06-03] MEDS ORDERED: NS IV 1000 ML 1,000 ML IV SCH (11:45)
[2020-06-03 13:58] VITALS: BP 128/88
== END 2020-06-03 13:58 | disposition home or self-care (01) ==
LOC: EDUNIT# 09:32 → ER 09:33
DX: T39.312A Poisoning by propionic acid derivatives, intentional self-harm, initial encounter (principal); R45.851 Suicidal ideations; E66.01 Morbid (severe) obesity due to excess calories; Z68.42 Body mass index [BMI] 45.0-49.9, adult; Z83.3 Family history of diabetes mellitus; Z82.49 Family history of ischemic heart disease and other diseases of the circulatory system
CPT/HCPCS: 80053; 80306; 81000; 84443; 84703; 85025; 87088; 99284; G0480 ×3; 36415; 80320; 80329

== ENCOUNTER 2021-09-18 20:01 | Emergency (ER) | payer SELFPAY ==
[~2021-09-18] VITALS: Ht 167.7 cm; Wt 147.0 kg
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
--- NOTE | 2021-09-18 21:03 | Diagnostic Imaging Report ---
INDICATION: Injury, pain. EXAMINATION: Right foot, 09/18/2021. FINDINGS: 3 views of the foot. There is plantar and posterior calcaneal spurring. There is a very tiny lucency seen on the frontal view only at the base of the proximal 3rd phalanx, correlate for point tenderness. Remaining osseous structures unremarkable with no other fracture or dislocation appreciated. IMPRESSION: Vague lucencies seen on one view only at the base of the proximal 3rd phalanx. This could be a nutrient foramen with fracture not excluded, correlate clinically. Dictated by: Dictated on workstation # [id number]
[2021-09-18] MEDS ORDERED: KETOROLAC 60 MG/2 ML VIAL IM ONE (21:45)
[2021-09-18 21:48] VITALS: BP 124/74
== END 2021-09-18 21:48 | disposition home or self-care (01) ==
LOC: EDUNIT# 20:01 → ER 20:02
DX: S92.901A Unspecified fracture of right foot, initial encounter for closed fracture (principal); E66.01 Morbid (severe) obesity due to excess calories; Z68.42 Body mass index [BMI] 45.0-49.9, adult; W23.1XXA Caught, crushed, jammed, or pinched between stationary objects, initial encounter; Y92.34 Swimming pool (public) as the place of occurrence of the external cause
CPT/HCPCS: 73630; 99283; L2114